=== PATIENT | female | born 1950 | race Caucasian/White ===

== ENCOUNTER → 2017-08-19 | Day surgery (SDC) | payer MEDICARE ==
[~2017-08-19] VITALS: Ht 167.6 cm; Wt 98.5 kg
[~2017-08-19] MED LIST: BUPIVACAINE HCL PF 0.5% 30 ML VIAL ONE; CEPH-460 PO; CHLORHEXIDINE GLUCONATE 2 % 1 PACK (2 CLOTHS) TOPICAL PRN; FURO20TA PO; INSULIN HUMAN REGULAR 1,000 UNITS/10 ML VIAL SQ PRN; LACTATED RINGER'S 1000 ML INJ 1,000 ML ONE; LACTATED RINGER'S 1000 ML IV PRN; LEVO.125 PO; LIDOCAINE HCL 2% 50 ML VIAL ONE; LORA1TAB12 PO; MECL-62 PO; METO25TA3 PO; METOPROLOL TARTRATE 25 MG TAB PO PRN; NEOMYCIN/POLYMYXIN 1 ML G.U. IRRIGANT ONE; POTA10CA PO; POVIDONE IODINE 5% (ANTISEPSIS KIT) 4 APPLICATIONS EACH NARE PRN; PROPOFOL 200 MG/20 ML AMP IV ONE; SERT25TA83 PO; SODIUM CHLORID 0.9% 500 ML IV PRN; SODIUM CHLORIDE 0.9% INJ 50 ML ONE; SUCR1TAB PO; TRAM50TA PO; ceFAZolin 1,000 MG/NS 100 ML IV SCH; ceFAZolin INJ 1,000 MG VIAL ONE
[2017-08-19 11:02] LABS: HEMATOCRIT 39.1 % (35.0-46.0); MEAN CELL VOLUME 80.6 FL (80.0-100.0); MEAN CORPUSCULAR HEMOGLOBIN 26.4 PG (27.0-34.0); MEAN CORPUSCULAR HGB CONC 32.8 % (32.0-36.0); PLATELET COUNT 250 TH/MM3 (150-450); RED BLOOD COUNT 4.85 MIL/MM3 (4.00-5.30); RED CELL DISTRIBUTION WIDTH 14.9 % (11.6-17.2); REVIEW FLAG FINAL
[2017-08-19 13:20] VITALS: BP 164/80; PULSE 64; RESP 16; TEMP 98; O2SAT 98
--- NOTE | 2017-08-19 13:29 | MP ---
cc: JAY CARDENAS III, M.D. DATE OF SURGERY: 08/19/2017 PREOPERATIVE DIAGNOSIS Left ring finger mucous cyst. POSTOPERATIVE DIAGNOSIS Left ring finger mucous cyst. PROCEDURE Left ring finger mucous cyst excision. SURGEON Jay Cardenas III, MD DETAILS OF PROCEDURE The patient was brought to the operating and placed supine on the operating table. After the correct site and side of surgery were verified by members of each team in the room multiple times including the patient and myself, after adequate preoperative markings and preoperative written consent was verified by everyone, and after adequate IV sedation had been achieved, the left upper extremity was prepped and draped in the traditional sterile surgical fashion. A 50/50 mixture of 2% plain lidocaine and 0.5% plain Marcaine was infiltrated in the skin and subcutaneous tissue on the dorsal aspect down the radial aspect of the ring finger at the metacarpal level to provide for a metacarpal level digital block. The limb was exsanguinated using the two smallest fingers from a size six sterile glove. A T-shaped incision was made over the dorsal aspect of the PIP joint of the ring finger overlying the mass. It was carried down through skin and subcutaneous tissue. Sharp dissection continued and an encapsulated cyst was dissected free from surrounding tissue down to the stalk going down through the tendon to the joint. This was all passed off the field in its entirety. The base was then thoroughly debrided. The osteophyte was debrided as well. A ratty attenuated tendon was excised with a rongeur and then curettage of the area to induce scar tissue formation was done. Thorough irrigation was then performed. Passive range of motion of the joint revealed smooth range of motion. There were no other anatomic abnormalities identified. The attenuated skin was then sharply excised to provide for a nicer closure. The skin edges were then re-approximated using running and interrupted 5-0 nylon sutures. The hand and arm were thoroughly cleansed and dried. Betadine Adaptic dressing was applied atop the wound. The finger tourniquet was released and the finger became immediately soft, pink and warm and had brisk capillary refill of less than two seconds. A bulky soft dressing was applied. The patient was awakened from anesthesia and transported to the post-anesthesia care unit awake and in stable condition at the end of the case. Sponge, needle and instrument counts were correct at the end of the case as reported by the nurses in the room. MD TUAN Mcintosh III /12:34 PM /1:12 PM
--- NOTE | 2017-08-19 13:39 | EKG ---
Date Performed: 08/19/2017 Time Performed: 11:03:22 PTAGE: 67 years EKG: Sinus rhythm MARKED LEFT AXIS DEVIATION ANTEROSEPTAL MYOCARDIAL INFARCTION ABNORMAL ECG PREVIOUS TRACING : 12/14/2012 16.06 DOCTOR: Hair Long Interpretating Date/Time 08/19/2017 13:38:19
== END | disposition home or self-care (01) ==
LOC: PHSDC 10:11
PROVIDERS: ATTEND Orthopaedic Surgery Hand Surgery
DX: R22.32 Localized swelling, mass and lump, left upper limb (principal); I10 Essential (primary) hypertension
CPT/HCPCS: 01810; 26160; 36415; 85027; 88304; 93005; J0690; J3010; J7120

== ENCOUNTER → 2018-02-18 | Day surgery (SDC) | payer MEDICARE ==
[~2018-02-18] VITALS: Ht 168.9 cm; Wt 82.5 kg
[~2018-02-18] MED LIST changes: +BUPIVACAINE HCL PF 0.25% 30 ML VIAL INFIL ONE; -BUPIVACAINE HCL PF 0.5% 30 ML VIAL ONE; +FAMOTIDINE 20 MG/2 ML VIAL ONE; +HYDR-3288 PO; -INSULIN HUMAN REGULAR 1,000 UNITS/10 ML VIAL SQ PRN; -LACTATED RINGER'S 1000 ML INJ 1,000 ML ONE; +LIDOCAINE HCL 2% 50 ML VIAL INFIL ONE; -LIDOCAINE HCL 2% 50 ML VIAL ONE; +MIDAZOLAM HCL 2 MG/2 ML VIAL ONE; -PROPOFOL 200 MG/20 ML AMP IV ONE; -SODIUM CHLORIDE 0.9% INJ 50 ML ONE; -SUCR1TAB PO; -TRAM50TA PO; +TRIAMCINOLONE ACETONIDE 40 MG/ML VIAL ONE; -ceFAZolin INJ 1,000 MG VIAL ONE
--- NOTE | 2018-02-18 12:06 | MP ---
cc: Jay Cardenas MD DATE OF OPERATION: 02/18/2018 PREOPERATIVE DIAGNOSIS: 1. Left ring finger mucous cyst, recurrent. 2. 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 PROCEDURES: 1. Left ring finger mucous cyst excision, recurrent. 2. Left middle finger distal interphalangeal steroid injection. SURGEON: Jay Cardenas III, MD. PROCEDURE NOTE: The patient was brought to the operating room, placed supine on the operating table. After the correct site and side of surgery were verified by members of each team in the room multiple times including the patient and myself, and after adequate preoperative markings and preoperative written consent were verified by everyone and after adequate preoperative time-out was performed to everyone's satisfaction and after adequate IV sedation had been achieved, the left upper extremity was prepped and draped in the traditional sterile surgical fashion. A 50/50 mixture of 2% plain lidocaine and 0.5% plain Marcaine was infiltrated in the skin and subcutaneous tissue on the dorsal aspect of the ring and over the middle phalanx. A finger tourniquet was applied on the ring finger. A T-shaped incision overlying the dorsal radial aspect of the DIP joint was made, carried down through skin only. The extensor tendon was sharply from the skin. An obvious cystic pocket was identified and a tract leading to the DIP joint was recognized. This whole area of inflammation was then sharply excised in its entirety. Multiple osteophytes on the dorsal aspect and the radial aspect of the DIP joint were then debrided. Thorough irrigation of the joint was performed. There were no other anatomic abnormalities identified. There was no further evidence of any part of the cyst or related disease. The attenuated skin was then sharply excised and the skin edges reapproximated using interrupted and running 5-0 nylon suture. The finger DIP joint was then sterilely injected with 0.8 mL of a 1:1 mixture of 2% plain lidocaine, 0.25 percent plain Marcaine and Kenalog 40 mg/mL. Capillary refill was less than 2 seconds in all fingertips after the finger tourniquet was release from the ring finger. A Band-Aid was applied to the to the middle finger. Betadine and Adaptic was applied on top of the wound on the ring finger, followed by a bulky soft dressing. A dry sterile circumferential dressing was applied in the usual fashion. The patient was awakened from anesthesia and transported to the postanesthesia care unit awake and in stable condition at the end of the case. The sponge, needle and instrument counts were correct at the end of the case as reported by the nurse in the room. MD AVINASH Mcintosh/VERA , 11:45 AM , 12:05 PM
[2018-02-18 12:10] VITALS: BP 130/62; PULSE 58; RESP 16; TEMP 97.9; O2SAT 97
== END | disposition home or self-care (01) ==
LOC: PHSDC 07:35
PROVIDERS: ATTEND Orthopaedic Surgery Hand Surgery
DX: R22.32 Localized swelling, mass and lump, left upper limb (principal); M25.842 Other specified joint disorders, left hand; M13.842 Other specified arthritis, left hand
CPT/HCPCS: 01810; 20600; 26160; J0690; J2250; J3010; J3301; J7120